=== PATIENT | female | born 1985 | race Asian ===

== ENCOUNTER 2021-06-29 06:32 | Day surgery (SDC) | payer BC ==
[2021-06-26 09:25] LABS: Absolute Lymphocytes (CBC) 2.2 K/uL (0.7-4.9); Hematocrit 36.3 % (36.0-45.0); MPV 7.5 fL (7.6-11.3); RBC Red Blood Cell Count 4.33 M/uL (3.86-4.86)
[2021-06-28 14:35] LABS: Specific Gravity 1.025 (1.005-1.030)
[2021-06-29] MEDS ORDERED: Ringers Lactate 1,000 ML IV ONE (06:51)
[2021-06-29] MEDS ORDERED: LIDOCAINE 1% W/EPI 1:100,000 MDV 50 ML VIAL ONE (06:59)
[2021-06-29] MEDS ORDERED: propofoL 200 MG/20 ML VIAL IV ONE (07:19)
[2021-06-29] MEDS ORDERED: dexAMETHasone 10 MG/ML VIAL ONE (07:20)
[2021-06-29] MEDS ORDERED: FENTANYL CITR 100 MCG/2 ML ONE (07:20)
[2021-06-29] MEDS ORDERED: LIDOCAINE 1% MPF 30 ML VIAL ONE (07:20)
[2021-06-29] MEDS ORDERED: ONDANSETRON 4 MG/2 ML VIAL ONE (07:20)
[2021-06-29] MEDS ORDERED: MIDAZOLAM HCL 2 MG/2 ML INJ ONE (07:20)
[2021-06-29] MEDS ORDERED: KETOROLAC 30 MG/ML INJ ONE (07:20)
[2021-06-29] MEDS ORDERED: HYDROCODONE/APAP 5/325 MG TAB PO PRN (08:28)
--- NOTE | 2021-06-29 08:32 | P.BOP ---
Preoperative diagnosis: AUB-O/L Menorrhagia Postoperative diagnosis: same Primary procedure: hysteroscopy d/c Estimated blood loss: min Specimen: EMC Findings: cavity empty, undistorted, thick lining Anesthesia: MAC Complications: None Transferred to: Recovery Room Condition: Good
[2021-06-29] MEDS ORDERED: HOME MED 1 EA UNK (Vit C/Ascorb Sod/Multivit-Min [Emergen-C 500 Mg Chewable Tab] 500 MG Ta PO SCH (09:00)
[2021-06-29 09:34] VITALS: TEMP 98.6
[2021-06-29 09:36] VITALS: BP 130/67; O2SAT 99
--- NOTE | 2021-06-29 19:04 | OP ---
Date of Procedure: 06/29/2021 Surgeon: Sarah Vinson MD Business Initiatives Manager: No assistants. Preoperative Diagnoses: Abnormal menstrual bleeding (AUB-O/L), menorrhagia. Postoperative Diagnoses: Abnormal menstrual bleeding (AUB-O/L), menorrhagia. Procedures Performed: Diagnostic hysteroscopy, D and C. Anesthesia: MAC plus paracervical block. Specimens: Endometrial curettings. Complications: No complications. Drains: No drains. Estimated Blood Loss: Minimal. Findings: Endometrial cavity anteflexed, slightly enlarged, sounded to 8 cm. Endometrial cavity com pletely unremarkable. Endometrium slightly thickened, but no cavity distortion. Both tubal ostia we re visualized and normal. No intracavitary masses. Condition: Stable. Brief History And Physical: The patient is a 36-year-old, 0 with abnormal uterine bleeding, has been managed with hormonal contraception. Has irregular prolonged bleeding and heavy days as wel l, so after failure of the oral contraceptive to control her bleeding, plan is to do endometrial samp ling to rule out atypia or malignancy. She was consented for hysteroscopic evaluation of her endomet rial cavity and D and C. After informed consent was re-verified, she was brought to the OR, placed in a supine fashion on the operating table. MAC was given. She was placed in a dorsal lithotomy position using Toro stirrups. Vulva and vagina prepped and draped in a sterile fashion. Speculum placed to expose the cervix and anterior lip injected with 1% lidocaine mixed with 1:100,000 epinephrine 5 cc here and then the para cervical block of 10 cc on each uterosacral ligaments. Anterior lip was grasped with 2 Allis clamps. SlimLine diagnostic hysteroscope was used to traverse the cervical canal under direct visualization into the uterine cavity. Cavity was unremarkable as dictated above. Both tubal ostia visualized, s ounded, and scope removed. Curettings were performed with a #1 curette. Adequate sampling was perfo rmed on all walker of the endometrial cavity. The purpose was for biopsy as well as to scrape the rosie ing gently, but adequately to synchronize the bleeding. All the instruments were removed. Instrument and sponge counts were done and were correct at the end of the case. The patient was recovered from anesthesia and taken to PACU in stable condition. She has a 1-week followup appointment for results with us. KURT Voice ID: [id number] Report ID: [id number]
== END 2021-06-29 09:05 | disposition home or self-care (01) ==
LOC: OR 06:32
PROVIDERS: ATTEND Obstetrics & Gynecology
PROC: 0UJD8ZZ Inspection of Uterus and Cervix, Via Natural or Artificial Opening Endoscopic (ICD-10-PCS; 2021-06-29)
PROC: 0UDB7ZX Extraction of Endometrium, Via Natural or Artificial Opening, Diagnostic (ICD-10-PCS; principal; 2021-06-29 07:30)
DX: D25.9 Leiomyoma of uterus, unspecified (principal); N92.6 Irregular menstruation, unspecified; E66.01 Morbid (severe) obesity due to excess calories; N71.1 Chronic inflammatory disease of uterus
CPT/HCPCS: 85025; 36415; 81025; 88305; 58558; J2704; J2250; J3010; J1100; J7120; J2405

== ENCOUNTER 2023-09-10 09:01 | Emergency (ER) | payer BC ==
[2023-09-10] MEDS ORDERED: ONDANSETRON 4 MG/2 ML VIAL ONE (09:07)
[2023-09-10] MEDS ORDERED: MORPHINE 4 MG/ML SYR ONE ×2 (09:07→10:53)
[2023-09-10] MEDS ORDERED: NA CHLORIDE 0.9% 1,000 ML ONE (09:08)
[2023-09-10] MEDS ORDERED: FAMOTIDINE 20 MG/2 ML VIAL IV ONE (09:08)
[2023-09-10 09:16] LABS: Absolute Basophils 0.1 K/uL (0-0.5); Absolute Eosinophils 0.4 K/uL (0-0.5); Absolute Lymphocytes (CBC) 4.4 K/uL (0.7-4.9); Absolute Monocytes 0.4 K/uL (0.1-1.3); Absolute Neutrophil 5.7 K/uL (1.8-8.0); Basophils % 0.9 % (0-1.3); Eosinophils % 3.6 % (0-4.4); Hematocrit 36.9 % (36.0-45.0); Hemoglobin 11.8 g/dL (12.0-15.0); Lymphocytes % 40.2 % (15.3-44.8); MCH 22.1 pg (27.0-35.0); MCHC 31.9 g/dL (32.0-36.0); MCV 69.2 fL (80-100); MPV 7.2 fL (7.6-11.3); Monocytes % 3.8 % (3.3-12.3); Neutrophils % 51.5 % (41.7-73.7); Nucleated Red Blood Cells % 0.2 % (0-0); Platelets 534 thou/uL (152-406); RBC Red Blood Cell Count 5.34 M/uL (3.86-4.86); Red Cell Distribution Width 19.2 % (12.1-15.2)
[2023-09-10 09:34] LABS: Albumin 3.8 g/dL (3.4-5.0); Albumin/Globulin Ratio 0.8 (1.1-1.8); Anion Gap 7.6 mEq/L (5.0-15.0); Bilirubin Total 0.6 mg/dL (0.2-1.0); Globulin 4.5 g/dL (2.3-3.5); Potassium 3.6 mEq/L (3.5-5.1); Protein, Total 8.3 g/dL (6.4-8.2)
[2023-09-10 09:48] LABS: Specific Gravity 1.027 (1.005-1.030)
[2023-09-10 09:54] LABS: Specific Gravity 1.027 (1.005-1.030); Urine Bacteria None Seen /HPF (<20); Urine Bilirubin NEGATIVE (Negative); Urine Blood Negative (Negative); Urine Clarity Extremely Turbid (Clear); Urine Color Yellow (Yellow); Urine Culture Reflex Order NOT NEEDED; Urine Glucose NEGATIVE (Negative); Urine Ketones NEGATIVE (Negative); Urine Microscopic Reflex YN ORDER UMIC; Urine Mucus 1+ /HPF (None Seen); Urine Nitrite NEGATIVE (Negative); Urine Protein TRACE (Negative); Urine RBC <5 /HPF (None Seen); Urine Urobilinogen Normal (Normal); Urine WBC <5 /HPF (<5); Urine pH 5.5 (5.0-7.0)
[2023-09-10 10:07] LABS: Platelet Estimate INCR; White Blood Cell Scan OK (OK)
[2023-09-10 10:08] LABS: Anisocytosis 1+; Blood Morphology Comment NOTED (NOT SEEN); Microcytosis 1+; Platelets, Giant FEW
--- NOTE | 2023-09-10 10:17 | RAD REPORT ---
EXAM DESCRIPTION: CTAbdomen Pelvis W Contrast - 09/10/2023 10:11 am CLINICAL HISTORY: Abdominal pain. ABD PAIN COMPARISON: No comparisons TECHNIQUE: Biphasic CT imaging of the abdomen and pelvis was performed with 100 ml non-ionic IV cont rast. All CT scans are performed using dose optimization technique as appropriate and may include automated exposure control or mA/KV adjustment according to patient size. FINDINGS: The lung bases are clear. The liver demonstrates mild fatty liver. Cholecystectomy. Spleen, pancreas, adrenal glands and kidney s are within normal limits. No bowel obstruction, free air, free fluid or abscess. The appendix is normal. No evidence of signi ficant lymphadenopathy. No suspicious bony findings. IMPRESSION: No acute intra-abdominal or pelvic finding. Mild fatty liver.
[2023-09-10] MEDS ORDERED: LIDOCAINE VISCOUS 2% 10ML ORAL SOLN ONE (10:29)
[2023-09-10] MEDS ORDERED: MAGNES/ALUMIN/SIMET 30ML UCUP ONE (10:29)
--- NOTE | 2023-09-10 10:44 | ER ---
Nurse's Notes [facility] Name: Anisha Singh Age: 38 yrs Sex: Female : 1985 Arrival Date: 09/10/2023 Time: 09:01 Bed 13 Private MD: Diagnosis: Abdominal pain, unspecified;Acute gastritis without bleeding Presentation: 09/09 09:02 Chief complaint: Patient states: she had abd pain that started this AM. states, "I kc6 started sweating in front of the patient this morning at work and I went to bathroom and threw up." pt actively vomiting in triage. Coronavirus screen: At this time, the client does not indicate any symptoms associated with coronavirus-19. Ebola Screen: No symptoms or risks identified at this time. Initial Sepsis Screen: Does the patient meet any 2 criteria? No. Patient's initial sepsis screen is negative. Does the patient have a suspected source of infection? No. Patient's initial sepsis screen is negative. Risk Assessment: Do you want to hurt yourself or someone else? Patient reports no desire to harm self or others. Onset of symptoms was September 10, 2023. 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 - Infectious Disease History:: Denies. - Social history:: Smoking status: Patient denies any tobacco usage or history of. - Family history:: not pertinent. - Hospitalizations: : No recent hospitalization is reported. Screenin:02 [facility] ED Fall Risk Assessment (Adult) History of falling in the last 3 months, kc6 including since admission No falls in past 3 months (0 pts) Confusion or Disorientation No (0 pts) Intoxicated or Sedated No (0 pts) Impaired Gait No (0 pts) Mobility Assist Device Used No (0 pt) Altered Elimination No (0 pt) Score/Fall Risk Level 0 - 2 = Low Risk. Abuse screen: Denies threats or abuse. Denies injuries from another. Nutritional screening: No deficits noted. Tuberculosis screening: No symptoms or risk factors identified. Assessment: 09:02 General: Appears in no apparent distress. uncomfortable, well groomed, well developed, kc6 Behavior is calm, cooperative, appropriate for age. Pain: Complains of pain in abdomen. Neuro: Level of Consciousness is awake, alert, obeys commands, Oriented to person, place, time, situation, Appropriate for age. Cardiovascular: Capillary refill < 3 seconds. Respiratory: Airway is patent Trachea midline Respiratory effort is even, unlabored, Respiratory pattern is regular, symmetrical. GI: Abdomen is round non-distended, Pt is actively vomiting clear fluid, Bowel sounds present X 4 quads. Reports upper abdominal pain, nausea, vomiting, Patient currently denies diarrhea. : No signs and/or symptoms were reported regarding the genitourinary system. EENT: No signs and/or symptoms were reported regarding the EENT system. Derm: No signs and/or symptoms reported regarding the dermatologic system. Skin is intact, is healthy with good turgor, Skin is diaphoretic, Skin is normal, Skin temperature is warm. Musculoskeletal: No signs and/or symptoms reported regarding the musculoskeletal system. Circulation, motion, and sensation intact. Capillary refill < 3 seconds, Range of motion: intact in all extremities. 10:02 Reassessment: Patient appears in no apparent distress at this time. No changes from [facility] previously documented assessment. Patient and/or family updated on plan of care and expected duration. Pain level reassessed. Patient is alert, oriented x 3, equal unlabored respirations, skin warm/dry/pink. Patient states feeling better. Patient states symptoms have improved. 10:57 Reassessment: d/c pending IV fluid completion. [facility] Vital Signs: 09:02 BP 135 / 95; Pulse 101; Resp 19 S; Pulse Ox 100% on R/A; Weight 96.62 kg (R); Height 5 kc6 ft. 3 in. (R); 10:45 BP 126 / 81; Pulse 80; Resp 15 S; Pulse Ox 100% on R/A; [facility] 09:02 Body Mass Index 37.73 (96.62 kg, 160.02 cm) [facility] ED Course: 09:02 Patient arrived in ED. [facility] 09:02 Steve Mi MD is Attending Physician. rn 09:02 Patient has correct armband on for positive identification. Placed in gown. Bed in low kc6 position. Call light in reach. Side rails up X 1. Client placed on continuous cardiac and pulse oximetry monitoring. NIBP monitoring applied. Pillow given. 09:03 Triage completed. kc6 09:03 Arm band placed on. kc6 09:05 Inserted saline lock: 20 gauge in right antecubital area, using aseptic technique. kc6 Blood collected. 09:20 Steph Corral, GAGAN is Primary Nurse. kc6 10:11 CT Abd/Pelvis - IV Contrast Only In Process Unspecified. EDMS 10:43 Vikas Cali MD is Referral Physician. rn 11:17 No provider procedures requiring assistance completed. IV discontinued, intact, kc6 bleeding controlled, No redness/swelling at site. Pressure dressing applied. Administered Medications: 09:20 Drug: NS 0.9% IV 1000 ml IV at 1 bolus Per protocol; 1000 mL bolus Route: IV; Rate: 1 kc6 bolus; Site: right antecubital; 11:17 Follow up: Response: No adverse reaction; IV Status: Completed infusion; IV Intake: kc6 1000ml 09:20 Drug: Famotidine IVP 20 mg IVP once; dilute with 10 mL 0.9% NaCl; give over 2 minutes kc6 Route: IVP; Site: right antecubital; 10:21 Follow up: Response: No adverse reaction kc6 09:20 Drug: Ondansetron IVP 4 mg IVP once; over 2 minutes Route: IVP; Site: right antecubital;kc6 10:20 Follow up: Response: No adverse reaction; Nausea is decreased; Vomiting decreased kc6 09:20 Drug: morphine IVP or IV 4 mg IVP once over 4 mins Route: IVP; Infused Over: 4 mins; kc6 Site: right antecubital; 10:20 Follow up: Response: No adverse reaction; Pain is decreased; RASS: Alert and Calm (0) kc6 10:34 Drug: GI Cocktail without - (Maalox PO 30 ml, Lidocaine Mucous Membrane 2 % 15 kc6 ml) PO once Route: PO; 10:46 Follow up: Response: No adverse reaction kc6 10:57 Drug: morphine IVP or IV 4 mg IVP once over 4 mins Route: IVP; Infused Over: 4 mins; kc6 Site: right antecubital; 11:17 Follow up: Response: No adverse reaction; Pain is decreased; RASS: Alert and Calm (0) kc6 Medication: 11:18 VIS not applicable for this client. kc6 Intake: 11:17 IV: 1000ml; Total: 1000ml. kc6 Outcome: 10:44 Discharge ordered by . rn 11:17 Discharged to home ambulatory, kc6 11:17 Condition: improved 11:17 Discharge instructions given to patient, Instructed on discharge instructions, follow up and referral plans. medication usage, Demonstrated understanding of instructions, follow-up care, medications, Prescriptions given X 2, 11:19 Patient left the ED. kc6 Signatures: Dispatcher [employer] EDMS Steve Mi MD MD rn Campbell, Kaitlyn, RN RN kc6 Corrections: (The following items were deleted from the chart) 09:36 09:02 Chief complaint: Patient states: she had abd pain that started this AM. states, kc6 "i started sweating in front of the patient this morning and I went to bathroom and threw up." pt actively vomiting in triage kc6
--- NOTE | 2023-09-10 10:44 | EDPHYS ---
Physician Documentation [facility] Name: Anisha Singh Age: 38 yrs Sex: Female : 1985 Arrival Date: 09/10/2023 Time: 09:01 Bed 13 Private MD: ED Physician Steve Mi HPI: 09/09 09:25 This 38 yrs old Female presents to ER via Wheelchair with complaints of rn Nausea/Vomiting, Abdominal Pain. 09:25 The patient presents to the emergency department with nausea, vomiting, abdominal pain. rn Onset: The symptoms/episode began/occurred this morning. Possible causes: unknown. The symptoms are aggravated by nothing. The symptoms are alleviated by nothing. Severity of symptoms: At their worst the symptoms were moderate in the emergency department the symptoms are unchanged. The patient has not experienced similar symptoms in the past. Patient reports periumbilical abdominal pain that began this morning when she got to work, associated with vomiting. Had pizza last night but felt fine. Davis fine when she woke up. Has history of acid reflux. Has had cholecystectomy. Denies any fever or chills but reports diaphoresis since the pain and vomiting started. History of ovarian cyst but this feels different. No trauma. No blood in stool or emesis.. 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 - Infectious Disease History:: Denies. - Social history:: Smoking status: Patient denies any tobacco usage or history of. - Family history:: not pertinent. - Hospitalizations: : No recent hospitalization is reported. ROS: 09:25 Constitutional: Negative for fever, chills, and weight loss, positive for diaphoresis rn postpartum: Negative for chest pain, palpitations, and edema, Respiratory: Negative for shortness of breath, cough, wheezing, and pleuritic chest pain, Abdomen/GI: Positive for abdominal pain and nausea/vomiting. Back: Negative for injury and pain, MS/Extremity: Negative for injury and deformity, Skin: Negative for injury, rash, and discoloration, Neuro: Negative for headache, weakness, numbness, tingling, and seizure, Exam: 09:25 Constitutional: This is a well developed, well nourished patient who is awake, alert, rn actively vomiting and diaphoretic Cardiovascular: Tachycardic, regular. Respiratory: No increased work of breathing, no retractions or nasal flaring. Abdomen/GI: Soft, mid abdominal tenderness, no rebound or guarding. No distention. Neuro: Awake and alert, GCS 15 Vital Signs: 09:02 BP 135 / 95; Pulse 101; Resp 19 S; Pulse Ox 100% on R/A; Weight 96.62 kg (R); Height 5 kc6 ft. 3 in. (R); 10:45 BP 126 / 81; Pulse 80; Resp 15 S; Pulse Ox 100% on R/A; kc6 09:02 Body Mass Index 37.73 (96.62 kg, 160.02 cm) 6 MDM: 09:02 Patient medically screened. rn 10:42 Differential diagnosis: Nonspecific abd pain, gastritis, pancreatitis, appendicitis, rn diverticulitis, viral gastroenteritis, gastroenteritis. Data reviewed: vital signs, nurses notes, lab test result(s), radiologic studies, CT scan, and as a result, I will discharge patient. Counseling: I had a detailed discussion with the patient and/or guardian regarding the historical points, exam findings, and any diagnostic results supporting the discharge/admit diagnosis, lab results, radiology results, the need for outpatient follow up, to return to the emergency department if symptoms worsen or persist or if there are any questions or concerns that arise at home. Response to treatment: the patient's symptoms have markedly improved after treatment, and as a result, I will discharge patient. Special discussion: Based on the patient's Hx, exam, and Dx evaluation, there is no indication for emergent surgery or inpatient Tx. It is understood by the patient/guardian that if the Sx's persist or worsen they need to return immediately for re-evaluation. I discussed with the patient/guardian in detail that at this point there is no indication for admission to the hospital. It is understood, however, that if the symptoms persist or worsen the patient needs to return immediately for re-evaluation. Based on the history and exam findings, there is no indication for further emergent testing or inpatient evaluation. I discussed with the patient/guardian the need to see the dinkey skinner for further evaluation of the symptoms. ED course: CT negative for acute findings. Most likely acid related as patient recently stopped antacid medication about a week or week and a half ago. Patient states had small episode about 3 days ago that was relieved with acid medication. Will DC home with Protonix and recommend GI follow-up for endoscopy as her last scope was 2018. I have personally reviewed all of the results, including but not limited to blood tests and imaging deemed necessary to safely discharge this patient at this time. All results given to and printed out for patient. I personally went over all the results with the patient and answered all questions. Patient will follow-up with PCP and or specialist as discussed. Return precautions given and understood.. 09/09 09:02 Order name: CBC with Diff; Complete Time: 10:13 rn 09/09 09:02 Order name: CMP; Complete Time: 10:04 rn 09/09 09:02 Order name: Lipase; Complete Time: 10:04 rn 09/09 09:02 Order name: Test, Urine; Complete Time: 10:04 rn 09/09 09:02 Order name: Urinalysis w/ reflexes; Complete Time: 10:04 rn 09/09 10:08 Order name: CBC Smear Scan; Complete Time: 10:13 EDMS 09/09 09:02 Order name: CT Abd/Pelvis - IV Contrast Only; Complete Time: 10:26 rn 09/09 09:02 Order name: IV Saline Lock; Complete Time: 09:05 rn 09/09 09:02 Order name: Labs collected and sent; Complete Time: 09:05 rn Administered Medications: 09:20 Drug: NS 0.9% IV 1000 ml IV at 1 bolus Per protocol; 1000 mL bolus Route: IV; Rate: 1 kc6 bolus; Site: right antecubital; 11:17 Follow up: Response: No adverse reaction; IV Status: Completed infusion; IV Intake: kc6 1000ml 09:20 Drug: Famotidine IVP 20 mg IVP once; dilute with 10 mL 0.9% NaCl; give over 2 minutes kc6 Route: IVP; Site: right antecubital; 10:21 Follow up: Response: No adverse reaction kc6 09:20 Drug: Ondansetron IVP 4 mg IVP once; over 2 minutes Route: IVP; Site: right antecubital;kc6 10:20 Follow up: Response: No adverse reaction; Nausea is decreased; Vomiting decreased kc6 09:20 Drug: morphine IVP or IV 4 mg IVP once over 4 mins Route: IVP; Infused Over: 4 mins; kc6 Site: right antecubital; 10:20 Follow up: Response: No adverse reaction; Pain is decreased; RASS: Alert and Calm (0) kc6 10:34 Drug: GI Cocktail without - (Maalox PO 30 ml, Lidocaine Mucous Membrane 2 % 15 kc6 ml) PO once Route: PO; 10:46 Follow up: Response: No adverse reaction kc6 10:57 Drug: morphine IVP or IV 4 mg IVP once over 4 mins Route: IVP; Infused Over: 4 mins; kc6 Site: right antecubital; 11:17 Follow up: Response: No adverse reaction; Pain is decreased; RASS: Alert and Calm (0) kc6 Disposition Summary: 09/10/23 10:44 Discharge Ordered Notes: Location: Home rn Problem: new rn Symptoms: have improved rn Condition: Stable rn Diagnosis - Abdominal pain, unspecified rn - Acute gastritis without bleeding rn Followup: rn - With: Vikas Cali MD - When: As needed - Reason: Recheck today's complaints, Re-evaluation by your physician Discharge Instructions: - Discharge Summary Sheet rn - Abdominal Pain, Adult rn - Gastritis, Adult rn Forms: - Medication Reconciliation Form rn - 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 EDMS EDMS 09:03 09:03 COMPREHENSIVE METABOLIC PANEL+C.LAB.BRZ ordered. EDMS EDMS 09:03 09:03 LIPASE+C.LAB.BRZ ordered. EDMS EDMS 09:03 09:03 Test, Urine+UC.LAB.BRZ ordered. EDMS EDMS 09: 09:03 Urinalysis+U.LAB.BRZ ordered. EDMS EDMS : 09:03 Abdomen Pelvis W Con+CT.RAD.BRZ ordered. EDMS EDMS
[2023-09-10 11:28] VITALS: BP 126/81; O2SAT 100
== END 2023-09-10 11:19 | disposition home or self-care (01) ==
LOC: ER 09:01
DX: K29.00 Acute gastritis without bleeding (principal); Z88.3 Allergy status to other anti-infective agents; Z88.6 Allergy status to analgesic agent
CPT/HCPCS: 85025; 81001; 36415; 81025; 83690; 80053; 74177; Q9967; J2405; J7030